=== PATIENT | male | born 1990 | race Caucasian/White ===

== ENCOUNTER 2018-02-14 22:26 | Emergency (ER) | payer OTHER ==
[2018-02-14] MEDS ORDERED: fentaNYL 100 MCG/2 ML SDV IVPUSH ONE ×2 (22:40→23:13)
[2018-02-14] MEDS ORDERED: Ondansetron 4 MG/2 ML SDV IV ONE (22:40)
[2018-02-14] MEDS ORDERED: Sodium Chloride 0.9% 1,000 ML IV ONE (22:40)
--- NOTE | 2018-02-14 22:40 | EDM.PDOC ---
ED HPI GENERAL MEDICAL PROBLEM - General Chief Complaint: Lower Extremity Injury/Pain Stated Complaint: HEMATOMA PREVIOUSLY, LEG INJURY [id number] Time Seen by Provider: 02/14/18 22:36 Source of Information: Reports: Patient History Limitations: Reports: No Limitations - History of Present Illness INITIAL COMMENTS - FREE TEXT/NARRATIVE: sudden onset right thigh swelling ~3 hours ago gotten worse feels light headed painful to bear weight feet feels numb. states had muscle injury few years ago Tx @ [facility] Right Lower Leg Pain Score (Numeric/FACES): 10 - Related Data Allergies Allergy/AdvReac Type Severity Reaction Status Date / Time No Known Allergies Allergy Verified 02/14/18 22:37 Home Meds: Home Meds . [No Known Home Meds] 02/14/18 [History] Review of Systems - Review of Systems Review Of Systems: ROS reveals no pertinent complaints other than HPI. ED EXAM, GENERAL - Physical Exam Exam: See Below Exam Limited By: No Limitations General Appearance: Alert, WD/WN, Mild Distress, Other (discomfort) Ears: Hearing Grossly Normal Throat/Mouth: Normal Voice, No Airway Compromise Head: Atraumatic Neck: Non-Tender, Full Range of Motion Respiratory/Chest: No Respiratory Distress Cardiovascular: Regular Rate, Rhythm GI/Abdominal: Soft, Non-Tender Extremities: Other (right thigh swollen>, D pedis 1+, feet c/o numbness, gait limited to pain) Neurological: Alert, Oriented, Normal Cognition Psychiatric: Flat Affect Skin Exam: Warm, Pallor Lymphatic: No Adenopathy Course - Vital Signs Last Recorded V/S: Last Vital Signs Temp 36.6 C 02/14/18 22:39 Pulse 76 02/14/18 22:39 Resp 18 02/14/18 22:39 BP 108/65 02/14/18 22:39 Pulse Ox 100 02/14/18 22:39 - Orders/Labs/Meds Orders: Active Orders 24 hr Category Date Time Status INR,PT,PROTHROMBIN TIME [COAG] Stat Lab 02/15/18 00:30 Ordered PTT,PARTIAL THROMBOPLSTIN TIME [COAG] Stat Lab 02/15/18 00:30 Ordered Labs: Laboratory Tests 02/14/18 02/14/18 02/14/18 Range/Units 22:36 22:36 22:36 WBC 14.7 H (5.0-10.0) 10^3/uL RBC 4.72 (4.6-6.2) 10^6/uL Hgb 13.9 L (14.0-18.0) g/dL Hct 39.9 L (40.0-54.0) % MCV 84.5 (80-100) fL MCH 29.4 (27.0-34.0) pg MCHC 34.8 (33.0-35.0) g/dL Plt Count 264 (150-450) 10^3/uL Neut % (Auto) 74.9 (42.2-75.2) % Lymph % (Auto) 17.3 L (20.5-50.1) % Day % (Auto) 6.7 (2-8) % Eos % (Auto) 0.8 L (1.0-3.0) % Baso % (Auto) 0.3 (0.0-1.0) % Sodium 139 (135-145) mmol/L Potassium 3.3 L (3.6-5.0) mmol/L Chloride 105 (101-111) mmol/L Carbon Dioxide 25.0 (21.0-31.0) mmol/L Anion Gap 12.3 BUN 22 H (7-18) mg/dL Creatinine 1.1 (0.6-1.3) mg/dL Est Cr Clr Drug Dosing 96.22 mL/min Estimated GFR (MDRD) > 60 BUN/Creatinine Ratio 20.00 Glucose 102 (74-105) mg/dL Calcium 8.7 (8.4-10.2) mg/dl Total Bilirubin 0.9 (0.2-1.0) mg/dL AST 31 (10-42) IU/L ALT 17 (10-60) IU/L Alkaline Phosphatase 41 L (42-121) IU/L Creatine Kinase 552 H (26-174) IU/L Total Protein 7.2 (6.7-8.2) g/dl Albumin 4.4 (3.2-5.5) g/dl Globulin 2.8 Albumin/Globulin Ratio 1.57 Blood Type A POSITIVE Gel Antibody Screen Negative Meds: Medications Discontinued Medications Generic Name Dose Route Start Last Admin Trade Name Freq PRN Reason Stop Dose Admin Fentanyl 50 mcg 02/14/18 22:40 02/14/18 22:50 Sublimaze IVPUSH 02/14/18 22:41 50 mcg ONETIME ONE Administration Fentanyl 50 mcg 02/14/18 23:13 02/14/18 23:18 Sublimaze IVPUSH 02/14/18 23:14 50 mcg ONETIME ONE Administration Hydromorphone HCl 1 mg 02/14/18 23:56 02/14/18 23:59 Dilaudid IVPUSH 02/14/18 23:57 1 mg ONETIME ONE Administration Hydromorphone HCl 1 mg 02/15/18 00:12 02/15/18 00:16 Dilaudid IVPUSH 02/15/18 00:13 1 mg ONETIME ONE Administration Sodium Chloride 1,000 mls @ 999 mls/hr 02/14/18 22:40 02/14/18 22:40 Normal Saline IV 02/14/18 23:40 999 mls/hr .BOLUS ONE Administration Iopamidol 100 ml 02/14/18 23:00 02/14/18 23:07 Isovue-300 (61%) IVPUSH 02/14/18 23:01 100 ml ONETIME ONE Administration Ondansetron HCl 4 mg 02/14/18 22:40 02/14/18 23:05 Zofran IV 02/14/18 22:41 4 mg ONETIME ONE Administration - Re-Assessments/Exams Free Text/Narrative Re-Assessment/Exam: 02/15/18 00:[address] Blair who kindly accepted pt. Departure - Departure Time of Disposition: 00:31 Disposition: Home, Self-Care 01 Condition: Fair Clinical Impression: Intramuscular hematoma - Discharge Information Forms: Interfacility Transfer [facility] - My Orders Last 24 Hours: My Active Orders 02/15/18 00:30 INR,PT,PROTHROMBIN TIME [COAG] Stat PTT,PARTIAL THROMBOPLSTIN TIME [COAG] Stat - Assessment/Plan Last 24 Hours: My Active Orders 02/15/18 00:30 INR,PT,PROTHROMBIN TIME [COAG] Stat PTT,PARTIAL THROMBOPLSTIN TIME [COAG] Stat
[2018-02-14] MEDS ORDERED: Iopamidol 612 MG/ML 100 ML Bottle IVPUSH ONE (23:00)
[2018-02-14 23:05] LABS: ANION GAP 12.3; CHLORIDE,CL 105 mmol/L (101-111); SODIUM,NA 139 mmol/L (135-145)
[2018-02-14] MEDS ORDERED: HYDROmorphone 0.5 MG/0.5 ML Syringe IVPUSH ONE (23:56)
[2018-02-15] MEDS ORDERED: HYDROmorphone 0.5 MG/0.5 ML Syringe IVPUSH ONE (00:12)
== END 2018-02-15 01:03 | disposition home or self-care (01) ==
LOC: DL.ED 22:26
DX: S70.11XA Contusion of right thigh, initial encounter (principal); X58.XXXA Exposure to other specified factors, initial encounter
CPT/HCPCS: 36415; 73701; 80053; 82550; 85025; 85610; 85730; 86850; 86900; 86901; 96374; 96375; 99284; J1170; J2405; J3010; J7030; Q9967